=== PATIENT | male | born 1940 | race Caucasian/White ===

== ENCOUNTER 2021-11-08 09:43 | Emergency (ER) | payer MEDICARE, BC ==
[~2021-11-08] VITALS: Ht 175.3 cm; Wt 136.1 kg
[2021-11-08] MEDS ORDERED: PIPERACILLIN/TAZOBACTAM 3.375 GM VIAL ONE (11:31)
[2021-11-08] MEDS ORDERED: BACTRIM DS TAB1 EACH PO (11:32)
[2021-11-08] MEDS ORDERED: AUGMENTIN 500-1 EACH PO (11:32)
[2021-11-08] MEDS ORDERED: PIPERACILLIN/TAZOBACTAM 3.375 GM in SODIUM CHLORIDE 0.9% 50ML 50 ML IV ONE (12:00)
== END 2021-11-08 12:10 | disposition home or self-care (01) ==
LOC: FSED 10:03
DX: L03.116 Cellulitis of left lower limb (principal); J45.909 Unspecified asthma, uncomplicated; Z85.528 Personal history of other malignant neoplasm of kidney
CPT/HCPCS: 73620; 80053; 85025; 87040; 99284; J2543